=== PATIENT | female | born 2000 | race Two or more races ===

== ENCOUNTER 2022-08-21 01:42 | Emergency (ER) | payer OTHER ==
[~2022-08-21] VITALS: Ht 167.6 cm; Wt 104.1 kg
[2022-08-21] MEDS ORDERED: KETOROLAC TROMETH 60MG/2ML VIAL IM ONE (04:45)
[2022-08-21] MEDS ORDERED: DexAMETHasone SOD PHOS 10MG/1ML VIAL INJ IM ONE (04:45)
[2022-08-21 04:59] VITALS: BP 127/83
== END 2022-08-21 05:00 | disposition home or self-care (01) ==
LOC: ER 01:47
DX: R51.9 Headache, unspecified (principal)
CPT/HCPCS: 96372; 99284; J1100; J1885